=== PATIENT | female | born 1995 ===

== ENCOUNTER 2017-12-31 08:23 | Day surgery (SDC) | payer OTHER ==
[2017-12-20 10:26] VITALS: BMI 31.7
[2017-12-31 09:08] VITALS: O2SAT 100
[2017-12-31] MEDS ORDERED: Midazolam 2 MG/2 ML VIAL ONE (10:03)
[2017-12-31] MEDS ORDERED: Propofol 10 mg/ml Inj (20 ML) ONE (10:03)
[2017-12-31] MEDS ORDERED: cefOXitin IV 2 gm in Dextrose 0 GM/0 ML BAG IVPB ONE (10:40)
[2017-12-31] MEDS ORDERED: HYDROmorphone 0.5 mg/0.5 ml ISec IVP PRN (11:32)
--- NOTE | 2017-12-31 11:46 | PCM.SURG1 ---
Surgeon's Initial Post Op Note - Surgeon's Notes Surgeon: Dr. Min Relationship Mgr: None Type of Anesthesia: General LMA Anesthesia Administered By: Dr. Zhong Pre-Operative Diagnosis: 22 yo with Endometrial hyperplasia Operative Findings: Av uterus 12-14 Post-Operative Diagnosis: Same as above Operation Performed: Hysteroscopy Myosure , D and C Specimen/Specimens Removed: Emc, ECC Estimated Blood Loss: EBL {In ML}: 10 Blood Products Given: N/A Drains Used: No Drains Post-Op Condition: Good Date of Surgery/Procedure: 12/31/17 Time of Surgery/Procedure: 11:46
[2017-12-31 12:40] VITALS: RESP 18
[2017-12-31 13:18] VITALS: BP 111/59; PULSE 74; TEMP 97.7
--- NOTE | 2018-01-01 08:17 | OP ---
Copied To: Arelis Min MD Attending MD: Arelis Min MD PROCEDURE DATE: 12/31/2017 PREOPERATIVE DIAGNOSES: A 22-year-old female with history of menorrhagia, irregular menstrual period, endometrial hyperplasia. POSTOPERATIVE DIAGNOSES: A 22-year-old female with history of menorrhagia, irregular menstrual period, endometrial hyperplasia. PROCEDURES: Hysteroscopy, MyoSure, dilatation and curettage. SURGEON: Arelis Min MD TYPE OF ANESTHESIA: General LMA. ANESTHESIOLOGIST: Kervin Nunes MD. DESCRIPTION OF PROCEDURE: The patient was informed of the risk factors, benefits and alternatives of procedure. Risk factors including infection, bleeding, damage to surrounding organs and tissue, complication from anesthesia and possible . After informed consent was obtained, she was then taken to the operating room, prepped and draped in normal sterile fashion, placed in dorsal lithotomy position. A weighted speculum was placed into the vagina. The anterior lip of the cervix was grasped with single-tooth tenaculum. The uterus was gently sounded to approximately 8 cm upon complete uterine dilation. The scope was then placed. It was noted that she had areas of proliferative endometrium. In that particular incident, the MyoSure device was then activated and performed. Excellent hemostasis was noted. The hysteroscope and the MyoSure device were then removed and a fractional D and C was performed. EMC and ECC were submitted to pathology. Excellent hemostasis. The scope was reintroduced making sure there were no areas of perforation. Upon completion, all instruments were removed from the vagina. Instruments, sponge, needle count were correct x2. The patient was then taken to Recovery in stable condition, instructed to follow up in the office in approximately 2 weeks. Arelis Min MD
== END 2017-12-31 13:15 | disposition home or self-care (01) ==
LOC: C.SDS 08:23
PROVIDERS: ATTEND Obstetrics & Gynecology
DX: N84.0 Polyp of corpus uteri (principal); N92.1 Excessive and frequent menstruation with irregular cycle; R10.30 Lower abdominal pain, unspecified
CPT/HCPCS: 36415; 58558; 80048; 81001; 82948; 84702; 84703; 85025; 85610; 85730; 86850; 86900; 88305; J1885; J2250; J2405; J2704; J3010

== ENCOUNTER 2018-04-01 08:44 | Day surgery (SDC) | payer OTHER ==
[2018-03-28 08:27] VITALS: BMI 29.8
[2018-04-01 09:35] VITALS: O2SAT 100
[2018-04-01] MEDS ORDERED: ceFAZolin 1 gm FROZEN Premix 1 GM/50 ML ML IVPB ONE (10:46)
[2018-04-01] MEDS ORDERED: Bupivacaine 0.25% 20 ML INJ IJ ONE (10:46)
[2018-04-01] MEDS ORDERED: Methylene Blue 10 mg/mL(10ml) IV ONE (10:46)
[2018-04-01] MEDS ORDERED: Succinylcholine Chloride 20 mg/ml Syr (5 ml) IV ONE ×2 (11:19→11:41)
[2018-04-01] MEDS ORDERED: Propofol 10 mg/ml Inj (20 ML) ONE (11:19)
--- NOTE | 2018-04-01 12:23 | PCM.SURG1 ---
Surgeon's Initial Post Op Note - Surgeon's Notes Surgeon: Dr. Min Military Log[employer] Specialist: Dr Noah Ruby Type of Anesthesia: General Endo Anesthesia Administered By: Dr. Dobbins Pre-Operative Diagnosis: 22 yo with Chronic pelvic pain , menorrhagia, irregular mentrual cycle , Failure of medical therapy Operative Findings: Av uterus with Pco Post-Operative Diagnosis: SAME ABOVE Operation Performed: Hysteroscopy D and C, Laparoscopy chemotubation and ovarian drilling Specimen/Specimens Removed: EMC, ECC Estimated Blood Loss: EBL {In ML}: 5 Blood Products Given: N/A Drains Used: No Drains Post-Op Condition: Good Date of Surgery/Procedure: 04/01/18 Time of Surgery/Procedure: 12:22
[2018-04-01] MEDS ORDERED: Lactated Ringer's 1,000 ML IV SCH (12:30)
[2018-04-01] MEDS: HYDROmorphone 0.5 mg/0.5 ml ISec IVP PRN ×2 (12:36→12:49)
[2018-04-01] MEDS ORDERED: HYDROmorphone 0.5 mg/0.5 ml ISec ONE (12:39)
[2018-04-01] MEDS ORDERED: Lactated Ringer's 1,000 ML IV ONE (13:00)
[2018-04-01 15:49] VITALS: BP 114/57; PULSE 81; RESP 17; TEMP 97.9
--- NOTE | 2018-04-01 23:50 | OP ---
PROCEDURE DATE: 04/01/2018 PREOPERATIVE DIAGNOSIS: A 22-year-old female with history of menorrhagia, irregular menstrual period, chronic pelvic pain and failure of medical therapy. POSTOPERATIVE DIAGNOSIS: A 22-year-old female with history of menorrhagia, irregular menstrual period, chronic pelvic pain and failure of medical therapy. PROCEDURES: Hysteroscopy, dilation and curettage, diagnostic laparoscopy, chromotubation, and ovarian drilling. SURGEON: Arelis Min MD MIX MILL TENDER: Bridgett Hall MD ANESTHESIOLOGIST: Dr. Dobbins. TYPE OF ANESTHESIA: General anesthesia. FINDINGS: An anteverted uterus approximately 8-week gestation, noted to have polycystic ovaries and some adhesions. COMPLICATIONS: None. ESTIMATED BLOOD LOSS: 5 mL. INPUTS AND OUTPUTS: 100 mL. SPECIMEN: EMC and ECC. INTRAVENOUS FLUIDS: 900 mL. DESCRIPTION OF PROCEDURE: The patient was informed of the risk factors, benefits and alternatives of the procedure. Risks factors included infection, bleeding, damage to the surrounding organs and tissues, complication from anesthesia and possible . After informed consent was obtained, the patient was then taken to the operating room, prepped and draped in normal sterile fashion, placed in a dorsal lithotomy position. In that particular instance, a Trammell catheter was placed in order to drain the bladder. A weighted speculum was placed into the vagina. The anterior lip of the cervix was grasped with a single-tooth tenaculum. Then, uterus was gently dilated to approximately 9 cm. Jose dilators were used for dilation. Upon completion, the scope was then placed. A complete surveillance of the uterine cavity was then performed. It was then removed and a fractional D and C was performed and submitted to Pathology. In that particular instance, a HUMI was then advanced in order to manipulate the uterus and all instruments from the vagina were removed. Attention was then turned to the umbilical fold which the 5-mm optic view was utilized with the optic view entered directly, 4 L of CO2. Upon entering, the gas was being insufflated and measures were made. The abdomen was insufflated using approximately 4 L of CO2 gas. At this time, a second incision was made using a 5-mm incision and a 5-mm trocar in the left lower quadrant and the third trocar was inserted also using a 5-mm incision in the right lower quadrant. Examination of the pelvis revealed the finding as above. At this particular time, chromotubation was then performed that demonstrated that bilateral tubes were patent. Upon doing that, it was found that she had polycystic ovarian syndrome and ovarian drilling was also performed with excellent hemostasis. Upon completion, the pelvis was then irrigated copiously and once again hemostasis was assured. All instruments were removed from the abdomen. Under proper visualization, the skin was closed with 3-0 Monocryl. Once the skin was closed with excellent hemostasis, Steri-Strips was then applied. Attention was then turned to the pelvis where the Trammell catheter was removed together with the HUMI. The patient tolerated the procedure well without any complications. She was then taken to the recovery room in stable condition. Arelis Min MD
== END 2018-04-01 15:48 | disposition home or self-care (01) ==
LOC: C.SDS 08:44
PROVIDERS: ATTEND Obstetrics & Gynecology
DX: R10.2 Pelvic and perineal pain (principal); N92.6 Irregular menstruation, unspecified; N92.0 Excessive and frequent menstruation with regular cycle
CPT/HCPCS: 58558; J0690; J1170; J2405; J2704; J3010; J7120

== ENCOUNTER 2018-07-15 10:08 | Outpatient (CLI) | payer OTHER | END 2018-07-15 10:09 | disposition home or self-care (01) | LOC: C.PAT 10:08 | DX: Z01.818 Encounter for other preprocedural examination (principal); N92.1 Excessive and frequent menstruation with irregular cycle ==

== ENCOUNTER 2018-07-17 09:02 | Day surgery (SDC) | payer OTHER ==
[2018-07-15 10:18] VITALS: BMI 32.4
[2018-07-17 10:03] VITALS: O2SAT 100
[2018-07-17] MEDS ORDERED: Propofol 10 mg/ml Inj (20 ML) ONE (11:38)
[2018-07-17] MEDS ORDERED: Midazolam 2 MG/2 ML VIAL ONE (11:39)
[2018-07-17] MEDS ORDERED: HYDROmorphone 0.5 mg/0.5 ml ISec IVP PRN (12:17)
[2018-07-17] MEDS ORDERED: Dexamethasone 4 mg/1 ml IVP PRN (12:17)
--- NOTE | 2018-07-17 12:17 | PCM.SURG1 ---
Surgeon's Initial Post Op Note - Surgeon's Notes Surgeon: Dr. Min Pallet Rectifier: none Type of Anesthesia: General LMA Anesthesia Administered By: Dr. Portillo Pre-Operative Diagnosis: 22 yo with Menorrhagia, Irregular menstrual cycle and failure of medical therapy Operative Findings: Av uterus 14 wks Post-Operative Diagnosis: Same as above Operation Performed: Hysteroscopy Myosure D and C Specimen/Specimens Removed: EMC, ECC Estimated Blood Loss: EBL {In ML}: 10 Blood Products Given: N/A Drains Used: No Drains Post-Op Condition: Good Date of Surgery/Procedure: 07/17/18 Time of Surgery/Procedure: 12:18
[2018-07-17 13:20] VITALS: RESP 16; TEMP 97.5
[2018-07-17 13:46] VITALS: BP 109/58; PULSE 73
--- NOTE | 2018-07-18 06:04 | OP ---
PROCEDURE DATE: 07/17/2018 PREOPERATIVE DIAGNOSES: A 22-year-old female with menorrhagia, irregular menstrual period, and failure of medical therapy. POSTOPERATIVE DIAGNOSES: A 22-year-old female with menorrhagia, irregular menstrual period, and failure of medical therapy. SURGEON: Arelis Min MD ANESTHESIOLOGIST: Melinda Altman MD TYPE OF ANESTHESIA: LMA. FINDING: Anteverted uterus with areas of endometrial polyp. COMPLICATIONS: None. ESTIMATED BLOOD LOSS: 5 mL. IN'S AND OUT: 170 mL. IV FLUIDS: 300 mL. SPECIMEN: EMC, ECC, and polyp. DESCRIPTION OF PROCEDURE: The patient was informed of the risk factors, benefits, and alternatives of the procedure. Risks factors included infection, bleeding, damage to surrounding organs and tissue. All questions were answered. Informed consent was obtained. Once the informed consent was obtained, she was then taken to the operating room, prepped and draped in normal sterile fashion, placed in dorsal lithotomy position. A weighted speculum was inserted into the vagina. The anterior lip of the cervix was grasped with single-tooth tenaculum. The uterus was gently sounded to approximately 10 cm. Upon complete uterine dilation, the scope was then placed. A complete surveillance of the uterine cavity was then performed. The MyoSure LITE device was then activated and turned on under direct visualization. Endometrial polyp was removed. Excellent hemostasis was noted. Upon completion, the scope was then removed and a fractional D and C was performed. EMC and ECC were submitted to Pathology. The scope was reintroduced making sure there were no areas of perforation. Upon completion, all instruments were then removed from the vagina. Instrument and lap counts were correct x2. The patient was then taken to the recovery room in stable condition and instructed to follow up in the office in a week. Arelis Min MD
== END 2018-07-17 13:43 | disposition home or self-care (01) ==
LOC: C.SDS 09:02
PROVIDERS: ATTEND Obstetrics & Gynecology
DX: N92.1 Excessive and frequent menstruation with irregular cycle (principal); N84.0 Polyp of corpus uteri
CPT/HCPCS: 58558; 88305; J1885; J2001; J2250; J2405; J2704; J2765; J3010